=== PATIENT | male | born 1975 | race Caucasian/White ===

== ENCOUNTER 2025-09-14 10:10 | Inpatient (IN) ==
[2025-09-14] MEDS: PLASMA-LYTE A 1,000 ML IV ONE ×2 (10:39→12:29)
[2025-09-14] MEDS: ALBUT/IPRATROP 3MG/0.5MG NEB 3 ML VIAL NEB STA (10:43)
[2025-09-14] MEDS: KETOROLAC TROMETHAMINE 15 MG/ML VIAL IV ONE (10:43)
[2025-09-14] MEDS: ACETAMINOPHEN 1,000 MG/100 ML VIAL IV STA ×2 (10:43→17:11)
[2025-09-14 10:51] LABS: Hematocrit (blood only) 42.0 % (42.0-52.0); Hemoglobin 14.8 g/dL (14.0-18.0); Immature Granulocytes # (auto) 0.05 K/uL (0.01-0.20); Immature Granulocytes % (auto) 0.4 %; Mean Corpuscular Hemoglobin 30.6 pg (25.0-34.0); Mean Corpuscular Volume 87.0 fL (80.0-100.0); Platelet Count 151 K/uL (130-400); RDW Standard Deviation 39.4 fL (36.4-46.3); Red Blood Count 4.83 M/uL (4.70-6.10); White Blood Count 11.50 K/ul (4.8-10.8)
--- NOTE | 2025-09-14 11:07 | Emergency Department Note ---
Impression & Plan Sepsis, Upper respiratory infection, viral, Pneumonia, Acute hypoxic respiratory failure, Acute hyponatremia, Acute dehydration, Elevated troponin, First degree AV block ED Provider Note NAME: MEKA QUEZADA AGE: 50 SEX: M : 1975 ARRIVES VIA: Walk-In INFORMANT: Patient, ED PROVIDER(S): Omar Lepe DO CHIEF COMPLAINT: URI symptoms HPI: This is a 50-year-old male with the PMHx of diet controlled hyperlipidemia presenting to [facility] for further evaluation of URI symptoms. Patient is accompanied by his who provide additional history. The patient states that he has had URI symptoms have been ongoing. He states he was having an intermittent cough over the past few weeks. States that it was a similar illness to now. He states now he has seemed to worsen over the past few days. He reports generalized malaise, intermittent fevers, myalgias, arthralgias and headaches. Patient does report a nonproductive cough as well as congestion. Patient does feel that he is mildly short of breath with chest tightness but no significant pain. Patient denies any recent tick bites but [place] He does have a cabin and may have been exposed to bat or rodent droppings. Patient was recently at urgent care and was provided with Tessalon Perles that have failed to improve his symptoms. No recent international travel. They deny abdominal pain, nausea and vomiting. No urinary complaints. No recent changes in bowel movements. Patient denies recent changes in medications or OTC supplements. Patient offers no other complaints, today. ADDITIONAL HISTORY OBTAINED: Per HPI Chronic Medical/Social Conditions Affecting Care: Per HPI PAST MEDICAL HISTORY: See Below PAST SURGICAL HISTORY: See Below FAMILY HISTORY: See Below SOCIAL HISTORY: See Below HOME MEDICATIONS: See Below ALLERGIES: See Below VITALS: See Below PHYSICAL EXAMINATION: GENERAL: Sitting up in bed, alert, ill appearing, well nourished, no distress, non-toxic EYE EXAM: conjunctival injection bilateral. PERRL and EOM's grossly intact. OROPHARYNX: no exudate, + erythema. Lips, buccal mucosa, and tongue normal and mucous membranes are dry NECK: supple, no nuchal rigidity, no adenopathy, non-tender LUNGS: Clear to auscultation. Normal chest wall mechanics HEART: no murmurs, tachycardic rate, regular rhythm ABDOMEN: abdomen soft, non-tender, no masses, no rebound or guarding. BACK: Back is symmetrical on inspection and there is no deformity, no midline tenderness, no CVA tenderness. SKIN: no rashes and no bruising UPPER EXTREMITIES: upper extremities are grossly normal. LOWER EXTREMITIES: No pitting edema. NEURO EXAM: Normal sensorium, GCS 15, normal speech, no gross weakness of arms, no gross weakness of legs. MEDICAL DECISION MAKING: Differential diagnoses includes but not limited to viral URI, viral conjunctivitis, viral pharyngitis, pneumonia, electrolyte derangements, dehydration, bacteremia, UTI, sepsis, tickborne illness In summary, this is a 50 year old male who presented with febrile illness. Differential as above. Nursing notes and pertinent past medical records reviewed. Vital signs reviewed and the patient is tachycardic and febrile but otherwise hemodynamically stable. History and presentation revealed this is an extremely healthy and active individual tick exposures no with febrile illness. Symptoms are mostly consistent with a URI and could be a viral illness with failure to improve. Would also consider pneumonia. Given his shortness of breath along with viral syndrome, will attempt a DuoNeb for improvement. Plan for labs, tickborne illness evaluation as well as chest x-ray. Will provide IV fluid resuscitation and antipyretics. Diagnostics interpreted by me include EKG and cardiac monitoring as listed below: -Cardiac Monitoring: An order was placed for continuous cardiac monitoring. The monitor shows a rate of 80-110s with regular rhythm. -ECG: Sinus tachycardia at a rate of 103 bpm. There is a first-degree AV block. No significant ST segment changes to suggest STEMI. Intervals are otherwise within normal limits. -Repeat ECG: Normal sinus rhythm with a first-degree AV block present. No significant ST segment changes to suggest STEMI. Intervals are within normal limits otherwise. Patient completed laboratory studies and imaging. Results independently interpreted by me are minimal leukocytosis. No significant anemia or thrombocytopenia present. Mild hyponatremia present. Procalcitonin is mildly elevated. LFTs are normal. Kidney function is normal. The patient was managed with further IV fluid resuscitation and antipyretics. Patient did continued to spike fevers while in the emergency department. Patient was initially managed with amoxicillin and doxycycline for planned treatment of outpatient community- acquired pneumonia. I did independently review the patient's chest x-ray that shows possible lower lobe infiltrates. The patient's chest x-ray is not impressive. While could represent pneumonia I feel that his symptoms are more related to a URI. Patient did report some improvement from DuoNeb but with ambulation continues to have significant dyspnea. There is unclear etiology of the patient's tachycardia and fever at this time. Will add blood cultures, urinalysis, lactate and CT PE study. Patient is relatively low risk Wells criteria and thought that D-dimer would be beneficial. D-dimer and troponin were both mildly elevated. He has very minimal risk factors for ACS and his presentation is not consistent with this. D-dimer elevation led to CT PE study. CT PE study was independently turbid by me as negative for pulmonary embolism. I do feel the patient could be developing pneumonia in the left lower lobe. Given his hyponatremia and atypical presentation/imaging for pneumonia, will add on further atypical coverage with IV azithromycin. The patient has now required 2 L of low-flow nasal cannula. Given the patient's electrolyte derangements, ongoing fevers and tachycardia as well as acute hypoxic respiratory failure, I do feel the patient would benefit from inpatient admission for further workup. Patient is agreeable to this. Lactate was normal. The patient's troponin level continued uptrend. Repeat EKG was unremarkable. Do feel this is likely demand ischemia in setting of his tachycardia and sepsis. Do not feel strongly regarding antiplatelet/anticoagulation at this time, will defer to inpatient team. Ultimately, the decision was made to admit the patient for sepsis secondary to pneumonia/viral URI complicated by troponinemia, acute hypoxic respiratory failure and hyponatremia. I discussed the case with the hospitalist service via telephone/[employer]iger[employer] and they are agreeable to admit the patient to their services by Dr. Fernandez, [facility] Hospitalist group. Based on the above, including the patient's age, coexisting illnesses, labs, imaging, and exam findings the decision to treat as an inpatient. I discussed the patient with the hospitalist team who recommended admission to their services. They received the medications, treatments, interventions indicated above and their condition remained guarded. I discussed my findings with the patient and their family and they understand and agree with the treatment plan. All patient / family questions were answered to their satisfaction. Consults/Care Managements Discussions: Per [facility] ER treatment provided: See above Procedures: None Critical Care: I have personally spent 35 minutes of critical care time in direct management of this patient. This includes bedside care, interpretation of diagnostic studies, and testing, discussion with consultants, patient, and family members, and other require inpatient management activities. This 35 minutes is in excess of all separately billable procedures. The chart was completed utilizing [employer] Speech voice recognition software. Grammatical errors, random word insertions, pronoun errors, and incomplete sentences are an occasional consequence of this system due to software limitations, ambient noise, and hardware issues. Any formal questions or concerns about the content, text, or information contained within the body of this dictation should be directly addressed to the physician for clarification. Past Med/Surg History Problem List (Updated 09/14/25 @ 18:21 by Omar Lepe DO) First degree AV block (Acute) Elevated troponin (Acute) Acute dehydration (Acute) Acute hyponatremia (Acute) Acute hypoxic respiratory failure (Acute) Pneumonia (Acute) Upper respiratory infection, viral (Acute) Sepsis (Acute) Pain in left acromioclavicular joint Hypertriglyceridemia Elevated LDL cholesterol level Superior labrum [id number] (SLAP) tear of right shoulder Encounter for pre-operative examination Colon cancer screening Medical History Patella fracture History of COVID-19 Surgical History Hx of colonoscopy History of right cataract surgery Hx of LASIK Family History Mother Hypertension Father Atrial fibrillation Other No family history of adverse response to anesthesia Denies family history of Ovarian cancer Prostate cancer Diabetes Dementia Depression Heart disease Myocardial infarction Breast cancer Lung cancer Colorectal cancer Stroke Social History Smoking Status: Never smoker Second Hand Exposure: No; Do You Dip or Chew Tobacco: No; Hx Alcohol Use: Yes Alcohol type: beer Alcohol Intake Frequency: 2-4 x/Month Hx Substance Use: No Preferred Language: Estonian Communication Ability: Effective Visual Impairment: No Limitations Hearing Ability: Normal Rn Critical Care Required: No Beliefs That Will Affect Care: None marital status: Current Living Situation: Spouse and Family Current Living Situation Comment: Lives with and kids current occupational status: employed current occupation: global project manager How many Children do You have: 2 Feels Safe at Home: Yes Childhood Exposure to Second-Hand Smoke: No Diet: regular caffeine: Yes during the past year weight has: remained stable Dental Care, Regularly: Yes Physical Activity Frequency: 3-4 Times per Week Seatbelt Use: always Sunscreen Use: Yes Do you think of yourself as: straight/heterosexual Gender Identity: Male Assistive Devices: Glasses Allergies Allergies Allergy/AdvReac Type Severity Reaction Status Date / Time No Known Allergies Allergy Verified 09/12/25 11:39 Home Meds Previous Rx's Medication Instructions Recorded benzonatate 200 mg capsule 200 mg PO TID PRN cough #30 caps 09/12/25 Results & Data (ED) Vital Signs Vital Signs - 24 hr 09/14/25 10:12 09/14/25 10:30 09/14/25 11:14 Temperature 37.5 C 38.6 C H 38.8 C H Temperature Source Temporal Artery Scan Oral Oral Pulse Rate 113 H Pulse Rate [Apical] 108 H Respiratory Rate 18 24 Respiratory Effort / Characteristics Non-Labored Spontaneous Respiratory Depth Normal Respiratory Pattern Regular Blood Pressure 143/80 H Blood Pressure [Right Arm] 107/69 Blood Pressure Mean 101 Blood Pressure Mean [Right Arm] 81 Pulse Oximetry 97 92 Oxygen Delivery Method Room Air Room Air Oxygen Flow Rate Sepsis New/Unexplained Change in Mental Status No Sepsis Action Taken by Nursing No Action Required 09/14/25 12:11 09/14/25 12:27 09/14/25 12:29 Temperature 37.6 C H 37.4 C Temperature Source Oral Oral Pulse Rate 92 H Pulse Rate [Apical] 86 Respiratory Rate 19 Respiratory Effort / Characteristics Non-Labored Spontaneous Respiratory Depth Normal Respiratory Pattern Regular Blood Pressure Blood Pressure [Right Arm] 104/66 Blood Pressure Mean Blood Pressure Mean [Right Arm] 78 Pulse Oximetry 93 Oxygen Delivery Method Room Air Oxygen Flow Rate Sepsis New/Unexplained Change in Mental Status Sepsis Action Taken by Nursing 09/14/25 13:47 09/14/25 14:43 09/14/25 15:00 Temperature Temperature Source Pulse Rate 93 H Pulse Rate [Apical] 82 96 H Respiratory Rate 24 25 H 23 Respiratory Effort / Characteristics Non-Labored Spontaneous Respiratory Depth Normal Respiratory Pattern Regular Blood Pressure 122/79 Blood Pressure [Right Arm] 106/66 128/75 Blood Pressure Mean 93 Blood Pressure Mean [Right Arm] 79 92 Pulse Oximetry 95 95 96 Oxygen Delivery Method Room Air Room Air Oxygen Flow Rate Sepsis New/Unexplained Change in Mental Status Sepsis Action Taken by Nursing 09/14/25 15:30 09/14/25 15:34 09/14/25 16:00 Temperature 38.2 C H Temperature Source Oral Pulse Rate 95 H 104 H Pulse Rate [Apical] Respiratory Rate 29 H 32 H Respiratory Effort / Characteristics Respiratory Depth Respiratory Pattern Blood Pressure 126/77 119/79 Blood Pressure [Right Arm] Blood Pressure Mean 93 92 Blood Pressure Mean [Right Arm] Pulse Oximetry 97 93 Oxygen Delivery Method Oxygen Flow Rate Sepsis New/Unexplained Change in Mental Status Sepsis Action Taken by Nursing 09/14/25 16:37 09/14/25 16:37 09/14/25 16:55 Temperature 39.2 C H Temperature Source Oral Pulse Rate Pulse Rate [Apical] Respiratory Rate Respiratory Effort / Characteristics Respiratory Depth Respiratory Pattern Blood Pressure Blood Pressure [Right Arm] Blood Pressure Mean Blood Pressure Mean [Right Arm] Pulse Oximetry 88 L 92 Oxygen Delivery Method Room Air Nasal Cannula Oxygen Flow Rate 2 Sepsis New/Unexplained Change in Mental Status Sepsis Action Taken by Nursing 09/14/25 17:10 09/14/25 17:49 09/14/25 18:03 Temperature 37.8 C H Temperature Source Oral Pulse Rate Pulse Rate [Apical] 105 H 83 Respiratory Rate 29 H 23 Respiratory Effort / Characteristics Non-Labored Spontaneous Respiratory Depth Normal Respiratory Pattern Regular Blood Pressure Blood Pressure [Right Arm] 108/70 107/73 Blood Pressure Mean Blood Pressure Mean [Right Arm] 82 84 Pulse Oximetry 93 94 Oxygen Delivery Method Nasal Cannula Nasal Cannula Oxygen Flow Rate 2 2 Sepsis New/Unexplained Change in Mental Status Sepsis Action Taken by Nursing Laboratory Data 09/14/25 10:40 09/14/25 17:12 Lab Results 09/14/25 09/14/25 09/14/25 Range/Units 10:40 17:12 18:00 WBC 11.50 H (4.8-10.8) K/ul RBC 4.83 (4.70-6.10) M/uL Hgb 14.8 (14.0-18.0) g/dL Hct 42.0 (42.0-52.0) % MCV 87.0 (80.0-100.0) fL MCH 30.6 (25.0-34.0) pg MCHC 35.2 (32.0-36.0) g/dL RDW Std Deviation 39.4 (36.4-46.3) fL RDW Coeff of Bud 12.3 (11.5-14.5) % Plt Count 151 (130-400) K/uL MPV 9.8 (9.4-12.4) fL Immature Gran % (Auto) 0.4 % Neut % (Auto) 67.1 % Lymph % (Auto) 23.2 % [place] % (Auto) 9.0 % Eos % (Auto) 0.0 % Baso % (Auto) 0.3 % Neut # (Auto) 7.71 H (1.40-6.50) K/uL Lymph # (Auto) 2.67 (1.20-3.40) K/uL [place] # (Auto) 1.04 H (0.11-0.59) K/uL Eos # (Auto) 0.00 (0.00-0.50) K/uL Baso # (Auto) 0.03 (0.00-0.20) K/uL Immature Gran # (Auto) 0.05 (0.01-0.20) K/uL D-Dimer (0-500) ug/L FEU Sodium 128 L 130 L (136-145) mmol/L Potassium 4.1 3.5 (3.5-5.1) mmol/L Chloride 96 L 97 L (98-107) mmol/L Carbon Dioxide 24 24 (21-32) mmol/L Anion Gap 8 9 (3-11) BUN 12 12 (6-23) mg/dl Creatinine 0.98 0.82 (0.6-1.4) mg/dl Est Cr Clr Drug Dosing 109.0 130.2 ml/min eGFR 94.53 107.68 BUN/Creatinine Ratio 12.2 14.6 (10-20) Glucose 129 H 116 H (70-99(Fasting)) mg/dl Lactate 1.2 (0.4-2.0) mmol/L Calcium 8.8 8.1 L (8.6-10.3) mg/dl Total Bilirubin 1.0 (0.2-1.0) mg/dl AST 30 (13-39) U/L ALT 23 (7-52) U/L Alkaline Phosphatase 83 (34-104) U/L Troponin I High Sens 25.5 H 125.6 H* D (0-20) pg/ml Total Protein 7.7 (6.0-8.3) gm/dl Albumin 4.3 (3.4-5.0) gm/dl Globulin 3.4 (2.5-4.0) gm/dl Albumin/Globulin Ratio 1.3 (0.9-2) Procalcitonin 1.59 H (0-0.5) ng/ml Urine Color Yellow Urine Appearance Clear (Clear) Urine pH 6.0 (4.5-7.5) Ur Specific [place] > 1.045 H (1.000-1.030) Urine Protein 1+ H (Negative) Urine Glucose (UA) Negative (Negative) Urine Ketones Trace H (Negative) Urine Blood Negative (Negative) Urine Nitrite Negative (Negative) Urine Bilirubin Negative (Negative) Urine Urobilinogen Negative (Negative) Ur Leukocyte Esterase Negative (Negative) Urine WBC (Auto) 6-10 H (0-5) /hpf Urine RBC (Auto) 0-2 (0-2) /hpf U Hyaline Cast (Auto) 0-2 (0-2) /lpf U Epithel Cells (Auto) 0-2 (0-2) /hpf Urine Bacteria (Auto) None Seen (None Seen) Urine Comment Adenovirus (PCR) Not Detected (NotDetected) Anaplasma Smear See Comment B. pertussis DNA (PCR) Not Detected (NotDetected) B.parapertussis DNA PCR Not Detected (NotDetected) Lyme Disease Screen Negative (Negative) C. pneumoniae DNA (PCR) Not Detected (NotDetected) Coronavirus OC43 (PCR) Not Detected (NotDetected) Coronavirus HKU1 (PCR) Not Detected (NotDetected) Coronavirus 229E (PCR) Not Detected (NotDetected) SARS-CoV-2 (PCR) Not Detected (NotDetected) Coronavirus NL63 (PCR) Not Detected (NotDetected) Human Metapneumovir PCR Not Detected (NotDetected) Influenza Type A (PCR) Not Detected (NotDetected) Influenza Type B (PCR) Not Detected (NotDetected) M. pneumoniae (PCR) Not Detected (NotDetected) Parainfluenza 1 (PCR) Not Detected (NotDetected) Parainfluenza 2 (PCR) Not Detected (NotDetected) Parainfluenza 3 (PCR) Not Detected (NotDetected) Parainfluenza 4 (PCR) Not Detected (NotDetected) RSV (PCR) Not Detected (NotDetected) Entero/Rhino (PCR) Not Detected (NotDetected) 09/14/25 Range/Units Unknown WBC (4.8-10.8) K/ul RBC (4.70-6.10) M/uL Hgb (14.0-18.0) g/dL Hct (42.0-52.0) % MCV (80.0-100.0) fL MCH (25.0-34.0) pg MCHC (32.0-36.0) g/dL RDW Std Deviation (36.4-46.3) fL RDW Coeff of Bud (11.5-14.5) % Plt Count (130-400) K/uL MPV (9.4-12.4) fL Immature Gran % (Auto) % Neut % (Auto) % Lymph % (Auto) % [place] % (Auto) % Eos % (Auto) % Baso % (Auto) % Neut # (Auto) (1.40-6.50) K/uL Lymph # (Auto) (1.20-3.40) K/uL [place] # (Auto) (0.11-0.59) K/uL Eos # (Auto) (0.00-0.50) K/uL Baso # (Auto) (0.00-0.20) K/uL Immature Gran # (Auto) (0.01-0.20) K/uL D-Dimer 2240 H* (0-500) ug/L FEU Sodium (136-145) mmol/L Potassium (3.5-5.1) mmol/L Chloride (98-107) mmol/L Carbon Dioxide (21-32) mmol/L Anion Gap (3-11) BUN (6-23) mg/dl Creatinine (0.6-1.4) mg/dl Est Cr Clr Drug Dosing ml/min eGFR BUN/Creatinine Ratio (10-20) Glucose (70-99(Fasting)) mg/dl Lactate (0.4-2.0) mmol/L Calcium (8.6-10.3) mg/dl Total Bilirubin (0.2-1.0) mg/dl AST (13-39) U/L ALT (7-52) U/L Alkaline Phosphatase (34-104) U/L Troponin I High Sens 45.0 H D (0-20) pg/ml Total Protein (6.0-8.3) gm/dl Albumin (3.4-5.0) gm/dl Globulin (2.5-4.0) gm/dl Albumin/Globulin Ratio (0.9-2) Procalcitonin (0-0.5) ng/ml Urine Color Urine Appearance (Clear) Urine pH (4.5-7.5) Ur Specific [place] (1.000-1.030) Urine Protein (Negative) Urine Glucose (UA) (Negative) Urine Ketones (Negative) Urine Blood (Negative) Urine Nitrite (Negative) Urine Bilirubin (Negative) Urine Urobilinogen (Negative) Ur Leukocyte Esterase (Negative) Urine WBC (Auto) (0-5) /hpf Urine RBC (Auto) (0-2) /hpf U Hyaline Cast (Auto) (0-2) /lpf U Epithel Cells (Auto) (0-2) /hpf Urine Bacteria (Auto) (None Seen) Urine Comment Adenovirus (PCR) (NotDetected) Anaplasma Smear B. pertussis DNA (PCR) (NotDetected) B.parapertussis DNA PCR (NotDetected) Lyme Disease Screen (Negative) C. pneumoniae DNA (PCR) (NotDetected) Coronavirus OC43 (PCR) (NotDetected) Coronavirus HKU1 (PCR) (NotDetected) Coronavirus 229E (PCR) (NotDetected) SARS-CoV-2 (PCR) (NotDetected) Coronavirus NL63 (PCR) (NotDetected) Human Metapneumovir PCR (NotDetected) Influenza Type A (PCR) (NotDetected) Influenza Type B (PCR) (NotDetected) M. pneumoniae (PCR) (NotDetected) Parainfluenza 1 (PCR) (NotDetected) Parainfluenza 2 (PCR) (NotDetected) Parainfluenza 3 (PCR) (NotDetected) Parainfluenza 4 (PCR) (NotDetected) RSV (PCR) (NotDetected) Entero/Rhino (PCR) (NotDetected) Administered Medications Amoxicillin (Amoxicillin 875 Mg Tab) 875 mg PO BID VU; Protocol Stop: 09/16/25 12:29 Last Admin: 09/14/25 13:48 Dose: 875 mg Documented By: [email or web address] Parenteral Electrolytes (Plasma-Lyte A Ph 7.4) 1,000 mls @ 125 mls/hr IV .Q8H VU Stop: 09/17/25 16:14 Last Admin: 09/14/25 16:53 Dose: 125 mls/hr Documented By: [email or web address] Discontinued Medications Albuterol (Albut/Ipratrop 3mg/0.5mg Neb 3 Ml Vial) 3 ml NEB NOW STA; Protocol Stop: 09/14/25 10:31 Last Admin: 09/14/25 10:43 Dose: 3 ml Documented By: MARIFER Albuterol (Albuterol Hfa 8 Gm Inhaler) 2 puffs INH NOW ONE Stop: 09/14/25 12:26 Last Admin: 09/14/25 13:48 Dose: 2 puffs Documented By: [email or web address] Doxycycline Hyclate (Doxycycline Hyclate 100 Mg Cap) 100 mg PO NOW STA Stop: 09/14/25 14:09 Last Admin: 09/14/25 14:44 Dose: 100 mg Documented By: [email or web address] Acetaminophen (Ofirmev) 1,000 mg in 100 mls @ 400 mls/hr IV NOW STA Stop: 09/14/25 10:44 Last Infusion: 09/14/25 11:16 Dose: Infused Documented By: [email or web address] Admin: 09/14/25 10:43 Dose: 400 mls/hr Documented By: MARIFER Parenteral Electrolytes (Plasma-Lyte A Ph 7.4) 1,000 mls @ 999 mls/hr IV .Q1H1M ONE Stop: 09/14/25 11:30 Last Infusion: 09/14/25 12:30 Dose: Infused Documented By: Admin: 09/14/25 10:39 Dose: 999 mls/hr Documented By: MARIFER Parenteral Electrolytes (Plasma-Lyte A Ph 7.4) 1,000 mls @ 999 mls/hr IV .Q1H1M ONE Stop: 09/14/25 13:25 Last Infusion: 09/14/25 13:49 Dose: Infused Documented By: [email or web address] Admin: 09/14/25 12:29 Dose: 999 mls/hr Documented By: CEF Acetaminophen (Ofirmev) 1,000 mg in 100 mls @ 400 mls/hr IV NOW STA Stop: 09/14/25 17:11 Last Infusion: 09/14/25 17:30 Dose: Infused Documented By: [email or web address] Admin: 09/14/25 17:11 Dose: 400 mls/hr Documented By: [email or web address] Azithromycin (Zithromax) 500 mg in 255 mls @ 127.5 mls/hr IV NOW ONE Stop: 09/14/25 18:58 Last Admin: 09/14/25 18:02 Dose: 127.5 mls/hr Documented By: [email or web address] Ioversol (Optiray 320 125ml) 119 ml IV ONCE ONE Stop: 09/14/25 16:49 Last Admin: 09/14/25 16:49 Dose: 119 ml Documented By: SIDRA Ketorolac Tromethamine (Ketorolac Tromethamine 15 Mg/Ml Vial) 10 mg IV NOW ONE Stop: 09/14/25 10:31 Last Admin: 09/14/25 10:43 Dose: 10 mg Documented By: MARIFER Ketorolac Tromethamine (Ketorolac Tromethamine 15 Mg/Ml Vial) 15 mg IV NOW STA Stop: 09/14/25 15:45 Last Admin: 09/14/25 16:20 Dose: 15 mg Documented By: [facility] Imaging Data Radiologist's Impression: Chest X-Ray 09/14/25 10:30 XR chest 2V PA/lateral CLINICAL HISTORY: eval for PNA COMPARISON STUDY: 09/12/2025 FINDINGS: Heart size and pulmonary vasculature are normal. There is interval mild stranding in the lung bases. No other consolidation or pleural effusion. No pneumothorax. IMPRESSION: Atelectasis versus early pneumonia in the lung bases. ACT 112: Negative or not required by law. Electronically signed by: Joseph Tuttle M.D. 09/14/2025 11:44 AM Chest CTA 09/14/25 15:59 CT pulmonary angiogram with IV contrast History: Cough COMPARISON: None TECHNIQUE: CT angiography of the chest was performed without IV contrast followed by IV contrast, including 3D post processing CTA image reconstruction. Dose reduction techniques were achieved by using automatic exposure control and/or adjustment of mA and/or kV according to patient size and/or use of iterative reconstruction technique. FINDINGS: Diagnostic quality: Adequate There is no evidence for pulmonary embolism. The heart is not enlarged. There is no pericardial effusion. There are no abnormally enlarged hilar or mediastinal lymph nodes. The central tracheobronchial tree is clear. The lungs are clear. There is no pleural effusion. Limited visualized upper abdomen. No destructive osseous changes are seen. IMPRESSION: No evidence for pulmonary embolism. Scattered streaky atelectasis throughout the lung bases, as well as an area of bandlike atelectasis in the right middle lobe. Electronically signed by Edgar Guadalupe 09-14-2025 5:01 PM Discharge Plan Visit Data Chief Complaint: Flu Like Symptoms Stated Complaint: HEADACHE, SOB, FATIGUE, FEVER ED Provider: Omar Lepe Discharge Problem: Sepsis, Upper respiratory infection, viral, Pneumonia, Acute hypoxic respiratory failure, Acute hyponatremia, Acute dehydration, Elevated troponin, First degree AV block Patient Disposition: Admitted As Inpatient Condition: Serious Forms Stand Alone Forms: [facility] [employer] Prescriptions Prescriptions: No Action benzonatate 200 mg capsule 200 mg PO TID PRN (Reason: cough) Qty: 30 0RF Referrals Referrals: Kristian Moise CRNP [Primary Care Provider] -
[2025-09-14 11:21] LABS: Alanine Aminotransferase 23.0 U/L (7-52); Albumin Globulin Ratio 1.3 (0.9-2); Albumin Level 4.3 gm/dl (3.4-5.0); Alkaline Phosphatase 83.0 U/L (34-104); Anion Gap 8.0 (3-11); Bilirubin,Total 1.0 mg/dl (0.2-1.0); Blood Urea Nitrogen 12.0 mg/dl (6-23); Calcium 8.8 mg/dl (8.6-10.3); Carbon Dioxide 24.0 mmol/L (21-32); Chloride 96.0 mmol/L (98-107); Creatinine Clr Calc Pharmacy 109.0 ml/min; Globulin 3.4 gm/dl (2.5-4.0); Glucose 129.0 mg/dl (70-99(Fasting)); Potassium 4.1 mmol/L (3.5-5.1); Sodium 128.0 mmol/L (136-145); Total Protein 7.7 gm/dl (6.0-8.3)
[2025-09-14 11:26] LABS: Procalcitonin 1.59 ng/ml (0-0.5)
[2025-09-14 11:43] LABS: Lyme Screen Rflx Confirmation Negative (Negative)
--- NOTE | 2025-09-14 11:45 | XRay Report ---
XR chest 2V PA/lateral CLINICAL HISTORY: eval for PNA COMPARISON STUDY: 09/12/2025 FINDINGS: Heart size and pulmonary vasculature are normal. There is interval mild stranding in the cristian ng bases. No other consolidation or pleural effusion. No pneumothorax. IMPRESSION: Atelectasis versus early pneumonia in the lung bases. ACT 112: Negative or not required by law. Electronically signed by: Joseph Tuttle M.D. 09/14/2025 11:44 AM
[2025-09-14 11:48] LABS: Chlamydia pneumoniae PCR Not Detected (NotDetected); Coronavirus 229E PCR Not Detected (NotDetected); Coronavirus CoV-2 (COVID19)PCR Not Detected (NotDetected); Coronavirus HKU1 PCR Not Detected (NotDetected); Coronavirus NL63 PCR Not Detected (NotDetected); Coronavirus OC43PCR Not Detected (NotDetected); Human Metapneumovirus PCR Not Detected (NotDetected); Parainfluenza Virus 1 PCR Not Detected (NotDetected); Parainfluenza Virus 2 PCR Not Detected (NotDetected); Parainfluenza Virus 3 PCR Not Detected (NotDetected); Parainfluenza Virus 4 PCR Not Detected (NotDetected); Respiratory Syncytial VirusPCR Not Detected (NotDetected); Rhinovirus/Enterovirus PCR Not Detected (NotDetected)
--- NOTE | 2025-09-14 13:08 | Electrocardiogram Report ---
Test Reason : Blood Pressure : */* mmHG Vent. Rate : 103 BPM Atrial Rate : 103 BPM P-R Int : 210 ms QRS Dur : 90 ms QT Int : 326 ms P-R-T Axes : 46 65 39 degrees QTcB Int : 427 ms Sinus tachycardia with 1st degree A-V block Otherwise normal ECG No previous ECGs available Confirmed by Edgar Lord ([id number]) on 09/14/2025 1:08:33 PM Referred By: REFERRED SELF Confirmed By: Edgar Lord
[2025-09-14] MEDS: AMOXICILLIN 875 MG TAB PO SCH (13:48)
[2025-09-14] MEDS: ALBUTEROL HFA 8 GM INHALER INH ONE (13:48)
[2025-09-14] MEDS: DOXYCYCLINE HYCLATE 100 MG CAP PO STA (14:44)
[2025-09-14] MEDS: KETOROLAC TROMETHAMINE 15 MG/ML VIAL IV STA (16:20)
[2025-09-14] MEDS: OPTIRAY 320 125ml IV ONE (16:49)
[2025-09-14] MEDS: PLASMA-LYTE A 1,000 ML IV SCH (16:53)
--- NOTE | 2025-09-14 17:01 | CT Scan Report ---
CT pulmonary angiogram with IV contrast History: Cough COMPARISON: None TECHNIQUE: CT angiography of the chest was performed without IV contrast followed by IV contrast, including 3D post processing CTA image reconstruction. Dose reduction techniques were achieved by using automatic exposure control and/or adjustment of mA and/or kV according to patient size and/or use of iterative reconstruction technique. FINDINGS: Diagnostic quality: Adequate There is no evidence for pulmonary embolism. The heart is not enlarged. There is no pericardial effusion. There are no abnormally enlarged hilar or mediastinal lymph nodes. The central tracheobronchial tree is clear. The lungs are clear. There is no pleural effusion. Limited visualized upper abdomen. No destructive osseous changes are seen. IMPRESSION: No evidence for pulmonary embolism. Scattered streaky atelectasis throughout the lung bases, as well as an area of bandlike atelectasis in the right middle lobe. Electronically signed by Edgar Guadalupe 09-14-2025 5:01 PM
--- NOTE | 2025-09-14 17:38 | History & Physical Report ---
Date of Service September 14, 2025 Assessment & Plan (1) Pneumonia: (2) Acute hypoxic respiratory failure: (3) Sepsis: (4) Acute hyponatremia: (5) Acute dehydration: (6) Elevated troponin: (7) First degree AV block: (8) Syncope: Plan 50yo male with no significant PMH presenting with cough for about 3 weeks, fever for several days in early August which resolved at that time, then recurrent fevers about 3-4 days ago. The recurrent fevers were associated with worsening cough, weakness, fatigue, poor appetite, and a brief syncopal episode at home. #b/l basilar pneumonia - -viral vs atypical bacterial pathogens vs typical bacterial pathogens -I suspect one of two scenarios --> back to back viral infections over the last 3 weeks, or alternatively an initial viral syndrome followed by bacterial superinfection (with the latter over the last 3-4 days) -respiratory BioFire negative -s/p amoxicillin, doxycycline, and azithromycin in the ER -will cont rocephin IV + azithromycin IV upon admission -check legionella urine ag -check mycoplasma IgM/IgG in the event his resp BioFire was falsely negative -flutter valve, incentive alcira -IV fluids -diet as tolerated -mucinex BID -hycodan q6h prn -if he fails to improve in the next 2-3 days would consider repeat COVID test, pulm consult, etc. #acute hypoxic resp failure - -2nd to b/l pneumonia -NC O2 -IV antibiotics as above -supportive care -no evidence of PE on CTA chest today #sepsis - -2nd to b/l basilar pneumonia -patient & his expressed concerns for exposure to ticks as well as potential mouse droppings as he was at their cabin recently doing some work on the site -lyme negative -anaplasmosis smear negative -check anaplasmosis DNA test to be complete (anaplasmosis rarely can cause pneumonia) -send rickettsial panel in am (typhus rarely can cause pneumonia) #hyponatremia - -2nd to dehydration/volume contraction -cont isotonic fluids -repeat BMP am #troponin elevation - -suspect this is due to myocardial demand ischemia in the setting of sepsis/pneumonia -no evidence of ACS -troponin peak already seen #syncope - -likely due to severe dehydration/volume contraction in the setting of his illness -had prodromal symptoms -will check echo to be complete -suspect echo will be normal; he leads an active lifestyle, exercises w/o limitations, etc. #first degree AV block - -no Rx needed -will be on telemetry to ensure no higher types of block -echo DVT proph - -if he stays beyond tomorrow would add heparin or lovenox SC pt's updated throughout the admission process History of Present Illness Chief Complaint: fever, cough, shortness of breath Primary Care Provider: KRYSTIAN Babcock 50yo male with no past medical history who presents with ~3 weeks of cough, fevers, and other infectious symptoms. Patient states he traveled to [place] in mid-July for work-related activity. Then, in early August, he developed a dry cough with 4-5 days of high fevers, sometimes reaching 104 degrees. Around this time one of his sons had a 24-hour febrile illness. Mr Clarke's fevers resolved, but his dry cough continued. Over the next two weeks his cough simply would not resolve. However, he was able to maintain normal activities, work, etc. He mentions he took an [id number] cough suppressant (Delsym) last week but did not like the way it made him feel and thus stopped it after 3 days of use. Then, on Saturday of last week, he developed significant fatigue and weakness, poor appetite, and worsening cough. Thru the weekend he felt warm but did not check his temperature until Saturday pm; at that point he confirmed that indeed he was having recurrent fevers. On Saturday he went to a local urgent care. A chest x-ray was performed and he was prescribed Tessalon perles. He continued to worsen. On Saturday and today he had dyspnea with minimal activity. Today he finally came to the ER for evaluation. In addition to the above he had an episode of diarrhea last night. While attempting to get up from the toilet he was very weak, felt dizzy, and passed out. He woke up on the floor; his came to his aid following this event. During my admission assessment his was present at bedside who supplemented the history. She mentioned that Mr Clarke was doing work on their cabin recently and she was concerned about exposure to mouse droppings. She also expressed concern about tick-borne illness. Allergies Allergy/AdvReac Type Severity Reaction Status Date / Time No Known Allergies Allergy Verified 09/12/25 11:39 Home Medications Medication Instructions Recorded Confirmed Type benzonatate 200 mg capsule 200 mg PO TID PRN cough #30 caps 09/12/25 09/14/25 Rx Past Med/Surg History Problem List (Updated 09/15/25 @ 06:33 by Guerrero Andrews MD) Syncope First degree AV block (Acute) Elevated troponin (Acute) Acute dehydration (Acute) Acute hyponatremia (Acute) Acute hypoxic respiratory failure (Acute) Pneumonia (Acute) Upper respiratory infection, viral (Acute) Sepsis (Acute) Pain in left acromioclavicular joint Hypertriglyceridemia Elevated LDL cholesterol level Superior labrum ekblfphi-bm-repodnxdt (SLAP) tear of right shoulder Encounter for pre-operative examination Colon cancer screening Medical History Patella fracture History of COVID-19 07/2022, home test, not hosp; "bad flu symptoms">resolved. Surgical History Hx of colonoscopy History of right cataract surgery Hx of LASIK Family History Mother Hypertension Breast cancer Factor 5 Leiden mutation, heterozygous Father Atrial fibrillation Other No family history of adverse response to anesthesia Denies family history of Ovarian cancer Prostate cancer Diabetes Dementia Depression Heart disease Myocardial infarction Lung cancer Colorectal cancer Stroke Social History Smoking Status: Never smoker Second Hand Exposure: No; Do You Dip or Chew Tobacco: No; Hx Alcohol Use: No Hx Substance Use: No Preferred Language: Polish Communication Ability: Effective Visual Impairment: No Limitations Hearing Ability: Normal Technical Architect Required: No Beliefs That Will Affect Care: None marital status: Current Living Situation: Spouse Current Living Situation Comment: Lives with and kids current occupational status: employed 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[employer]) How many Children do You have: 2 Feels Safe at Home: Yes Childhood Exposure to Second-Hand Smoke: No Diet: regular caffeine: Yes during the past year weight has: remained stable Dental Care, Regularly: Yes Physical Activity Frequency: 3-4 Times per Week Seatbelt Use: always Sunscreen Use: Yes Do you think of yourself as: straight/heterosexual Gender Identity: Male Assistive Devices: None Review of Systems Review of Systems: gen - fevers x 4-5 days early in August, resolved; then developed fevers this weekend once again; poor appetite for several days; no chills but having profuse sweats eyes - conjunctival injection with mild drainage L eye HENT - no sore throat, no significant nasal drainage, no ear pain CV - no chest pain, no peripheral edema pulm - dry cough, dyspnea, dyspnea on exertion; no wheezing; albuterol neb given early in the ER course - he feels it didn't really help; no sputum GI - no abd pain; 1 episode of diarrhea yesterday; no nausea/vomiting - no dysuria musculo - myalgias neuro - generalized weakness, brief episode of syncope yesterday while getting up from the toilet after having had diarrhea skin - no rash Physical Exam Physical Exam: gen - looks ill, awake, alert, able to provide history; coughing; no distress eyes - injected sclera/conjunctiva b/l; minimal drainage left eye HENT - TMs clear b/l, nose clear, mouth with slightly dry MM, no posterior pharyngeal wall erythema neck - no JVD, no lymph nodes, no goiter; no meningismus heart - tachy, s1 s2, no murmur or rub lungs - mild tachypnea but no retractions; coughing; b/l basilar rales about 1/[address] up the back; no wheeze; airation fair abd - soft NT ND BS+; no HSM ext - no edema, pulses 2+ b/l feet neuro - no facial droop, strength 5/5 x 4 exts skin - sweaty/diaphoretic, but no rash psych - a/o x 3 Results & Data Results & Data Vital Signs (Past 12 Hours) Vital Signs Temp Pulse Pulse Resp BP BP Pulse Ox 09/14/25 17:10 105 H 29 H 108/70 93 09/14/25 16:55 39.2 C H 09/14/25 16:37 92 09/14/25 16:37 88 L 09/14/25 16:00 104 H 32 H 119/79 93 09/14/25 15:34 38.2 C H 09/14/25 15:30 95 H 29 H 126/77 97 09/14/25 15:00 93 H 23 122/79 96 09/14/25 14:43 96 H 25 H 128/75 95 09/14/25 13:47 82 24 106/66 95 09/14/25 12:29 92 H 09/14/25 12:27 37.4 C 09/14/25 12:11 37.6 C H 86 19 104/66 93 09/14/25 11:14 38.8 C H 108 H 24 107/69 92 09/14/25 10:30 38.6 C H 09/14/25 10:12 37.5 C 113 H 18 143/80 H 97 O2 Del Method O2 Flow Rate 09/14/25 17:10 Nasal Cannula 2 09/14/25 16:55 09/14/25 16:37 Nasal Cannula 2 09/14/25 16:37 Room Air 09/14/25 16:00 09/14/25 15:34 09/14/25 15:30 09/14/25 15:00 09/14/25 14:43 Room Air 09/14/25 13:47 Room Air 09/14/25 12:29 09/14/25 12:27 09/14/25 12:11 Room Air 09/14/25 11:14 Room Air 09/14/25 10:30 09/14/25 10:12 Room Air Laboratory Results Laboratory Results - last 24 hr 09/14/25 09/14/25 09/14/25 10:40 17:12 18:00 WBC 11.50 H RBC 4.83 Hgb 14.8 Hct 42.0 MCV 87.0 MCH 30.6 MCHC 35.2 RDW Std Deviation 39.4 RDW Coeff of Bud 12.3 Plt Count 151 MPV 9.8 Immature Gran % (Auto) 0.4 Neut % (Auto) 67.1 Lymph % (Auto) 23.2 [place] % (Auto) 9.0 Eos % (Auto) 0.0 Baso % (Auto) 0.3 Neut # (Auto) 7.71 H Lymph # (Auto) 2.67 [place] # (Auto) 1.04 H Eos # (Auto) 0.00 Baso # (Auto) 0.03 Immature Gran # (Auto) 0.05 D-Dimer Sodium 128 L 130 L Potassium 4.1 3.5 Chloride 96 L 97 L Carbon Dioxide 24 24 Anion Gap 8 9 BUN 12 12 Creatinine 0.98 0.82 Est Cr Clr Drug Dosing 109.0 130.2 eGFR 94.53 107.68 BUN/Creatinine Ratio 12.2 14.6 Glucose 129 H 116 H Lactate 1.2 Calcium 8.8 8.1 L Total Bilirubin 1.0 AST 30 ALT 23 Alkaline Phosphatase 83 Troponin I High Sens 25.5 H 125.6 H* D Total Protein 7.7 Albumin 4.3 Globulin 3.4 Albumin/Globulin Ratio 1.3 Procalcitonin 1.59 H Urine Color Yellow Urine Appearance Clear Urine pH 6.0 Ur Specific [place] > 1.045 H Urine Protein 1+ H Urine Glucose (UA) Negative Urine Ketones Trace H Urine Blood Negative Urine Nitrite Negative Urine Bilirubin Negative Urine Urobilinogen Negative Ur Leukocyte Esterase Negative Urine WBC (Auto) 6-10 H Urine RBC (Auto) 0-2 U Hyaline Cast (Auto) 0-2 U Epithel Cells (Auto) 0-2 Urine Bacteria (Auto) None Seen Urine Comment Adenovirus (PCR) Not Detected Anaplasma Smear See Comment A. phagocytophilum DNA Pending B. pertussis DNA (PCR) Not Detected B.parapertussis DNA PCR Not Detected Lyme Disease Screen Negative C. pneumoniae DNA (PCR) Not Detected Coronavirus OC43 (PCR) Not Detected Coronavirus HKU1 (PCR) Not Detected Coronavirus 229E (PCR) Not Detected SARS-CoV-2 (PCR) Not Detected Coronavirus NL63 (PCR) Not Detected Human Metapneumovir PCR Not Detected Influenza Type A (PCR) Not Detected Influenza Type B (PCR) Not Detected Urine Legionella Ag Pending Mycoplasma pneumon IgG Pending Mycoplasma pneumon IgM Pending M. pneumoniae (PCR) Not Detected Parainfluenza 1 (PCR) Not Detected Parainfluenza 2 (PCR) Not Detected Parainfluenza 3 (PCR) Not Detected Parainfluenza 4 (PCR) Not Detected RSV (PCR) Not Detected Entero/Rhino (PCR) Not Detected 09/14/25 Unknown D-Dimer 2240 H* Troponin I High Sens 45.0 H D Diagnostic Findings Chest X-Ray 09/14/25 10:30 XR chest 2V PA/lateral CLINICAL HISTORY: eval for PNA COMPARISON STUDY: 09/12/2025 FINDINGS: Heart size and pulmonary vasculature are normal. There is interval mild stranding in the lung bases. No other consolidation or pleural effusion. No pneumothorax. IMPRESSION: Atelectasis versus early pneumonia in the lung bases. ACT 112: Negative or not required by law. Electronically signed by: Joseph Tuttle M.D. 09/14/2025 11:44 AM Chest CTA 09/14/25 15:59 CT pulmonary angiogram with IV contrast History: Cough COMPARISON: None TECHNIQUE: CT angiography of the chest was performed without IV contrast followed by IV contrast, including 3D post processing CTA image reconstruction. Dose reduction techniques were achieved by using automatic exposure control and/or adjustment of mA and/or kV according to patient size and/or use of iterative reconstruction technique. FINDINGS: Diagnostic quality: Adequate There is no evidence for pulmonary embolism. The heart is not enlarged. There is no pericardial effusion. There are no abnormally enlarged hilar or mediastinal lymph nodes. The central tracheobronchial tree is clear. The lungs are clear. There is no pleural effusion. Limited visualized upper abdomen. No destructive osseous changes are seen. IMPRESSION: No evidence for pulmonary embolism. Scattered streaky atelectasis throughout the lung bases, as well as an area of bandlike atelectasis in the right middle lobe. Electronically signed by Edgar Guadalupe 09-14-2025 5:01 PM ECG Additional Comments: EKG - sinus tach, first degree AV block, J point elevation - diffuse - early repol? PG Care Time/CCT Total # of Minutes Spent Total Time Spent with Patient: Total time spent is greater than 50% in coordination of care (as documented) at patient's floor/unit and/or counseling patient: Coding Level of Care Code 94741 INT INP/OBS CARE 3/75MIN Diagnoses Pneumonia J18.9 Acute hypoxic respiratory failure J96.01 Sepsis A41.9 Acute hyponatremia E87.1 Acute dehydration E86.0 Elevated troponin R79.89 First degree AV block I44.0 Syncope R55
[2025-09-14] MEDS: AZITHROMYCIN 500 MG/255 ML BAG IV ONE (18:02)
[2025-09-14 18:23] LABS: Appearance Urine Clear (Clear); Bacteria Urine Automated None Seen (None Seen); Cast Urine Automated 0-2 /lpf (0-2); Epithelial Cell Urine Auto 0-2 /hpf (0-2); Glucose Urine UA Negative (Negative); RBC Urine Automated 0-2 /hpf (0-2)
[2025-09-14 18:26] LABS: Anion Gap 9.0 (3-11); Blood Urea Nitrogen 12.0 mg/dl (6-23); Calcium 8.1 mg/dl (8.6-10.3); Carbon Dioxide 24.0 mmol/L (21-32); Chloride 97.0 mmol/L (98-107); Creatinine Clr Calc Pharmacy 130.2 ml/min; Glucose 116.0 mg/dl (70-99(Fasting)); Potassium 3.5 mmol/L (3.5-5.1); Sodium 130.0 mmol/L (136-145)
[2025-09-14] MEDS ORDERED: ACETAMINOPHEN 500 MG TAB PO PRN (21:09)
[2025-09-14] MEDS ORDERED: ONDANSETRON INJ 2 MG/ML 2 ML VIAL IV PRN (21:09)
[2025-09-14] MEDS ORDERED: KETOROLAC 30 MG/ML VIAL IV PRN (21:09)
[2025-09-14] MEDS: NSS + 20MEQ KCL 20 MEQ/1,000 ML BAG IV SCH (21:48)
[2025-09-14] MEDS: cefTRIAXone SODIUM 2,000 MG/50 ML BAG IV SCH (21:48)
[2025-09-14] MEDS: guaiFENesin 600 MG TABCR PO SCH (21:49)
[2025-09-14 23:29] VITALS: TEMP 97.9
[2025-09-15] MEDS: MELATONIN 3 MG TAB PO PRN (01:31)
[2025-09-15 04:00] VITALS: O2SAT 95
[2025-09-15 06:16] LABS: Hematocrit (blood only) 36.4 % (42.0-52.0); Hemoglobin 12.6 g/dL (14.0-18.0); Mean Corpuscular Hemoglobin 30.1 pg (25.0-34.0); Mean Corpuscular Volume 87.1 fL (80.0-100.0); Platelet Count 140 K/uL (130-400); RDW Standard Deviation 40.2 fL (36.4-46.3); Red Blood Count 4.18 M/uL (4.70-6.10); White Blood Count 7.99 K/ul (4.8-10.8)
[2025-09-15 06:20] LABS: Anion Gap 7.0 (3-11); Blood Urea Nitrogen 11.0 mg/dl (6-23); Calcium 8.0 mg/dl (8.6-10.3); Carbon Dioxide 25.0 mmol/L (21-32); Chloride 101.0 mmol/L (98-107); Creatinine Clr Calc Pharmacy 157.1 ml/min; Glucose 95.0 mg/dl (70-99(Fasting)); Potassium 3.8 mmol/L (3.5-5.1); Sodium 133.0 mmol/L (136-145)
[2025-09-15 07:31] VITALS: PULSE 70; RESP 16
[2025-09-15 07:36] LABS: Acanthocytes 1+; Immature Granulocytes # (auto) 0.02 K/uL (0.01-0.20); Immature Granulocytes % (auto) 0.3 %; Polychromasia 1+
--- NOTE | 2025-09-15 09:46 | Discharge Summary ---
Discharge Summary Date of Service September 15, 2025 Principal Dx & Hospital Course #1 = Principal Diagnosis (1) Pneumonia: (2) Acute hypoxic respiratory failure: (3) Sepsis: (4) Acute hyponatremia: (5) Acute dehydration: (6) Elevated troponin: (7) First degree AV block: (8) Syncope: Plan 50yo male with no significant PMH presenting with cough for about 3 weeks, fever for several days in early August which resolved at that time, then recurrent fevers about 3-4 days ago. The recurrent fevers were associated with worsening cough, weakness, fatigue, poor appetite, and a brief syncopal episode at home. #b/l basilar pneumonia - -viral vs atypical bacterial pathogens vs typical bacterial pathogens -I suspect one of two scenarios --> back to back viral infections over the last 3 weeks, or alternatively an initial viral syndrome followed by bacterial superinfection (with the latter over the last 3-4 days) -respiratory BioFire negative -s/p amoxicillin, doxycycline, and azithromycin in the ER -will cont rocephin IV + azithromycin IV upon admission -check legionella urine ag -check mycoplasma IgM/IgG in the event his resp BioFire was falsely negative -flutter valve, incentive alcira -IV fluids -diet as tolerated -mucinex BID -hycodan q6h prn -Pt's symptoms improved by AM, breathing on RA. #acute hypoxic resp failure - -2nd to b/l pneumonia -NC O2 -IV antibiotics as above -supportive care -no evidence of PE on CTA chest today #sepsis - -2nd to b/l basilar pneumonia -patient & his expressed concerns for exposure to ticks as well as potential mouse droppings as he was at their cabin recently doing some work on the site -lyme negative -anaplasmosis smear negative -check anaplasmosis DNA test to be complete (anaplasmosis rarely can cause pneumonia) -send rickettsial panel in am (typhus rarely can cause pneumonia) #hyponatremia - -2nd to dehydration/volume contraction -cont isotonic fluids -repeat BMP am #troponin elevation - -suspect this is due to myocardial demand ischemia in the setting of sepsis/pneumonia -no evidence of ACS -troponin peak already seen #syncope - -likely due to severe dehydration/volume contraction in the setting of his illness -had prodromal symptoms -will check echo to be complete -suspect echo will be normal; he leads an active lifestyle, exercises w/o limitations, etc. #first degree AV block - -no Rx needed -will be on telemetry to ensure no higher types of block -echo DVT proph - -if he stays beyond tomorrow would add heparin or lovenox SC pt's updated throughout the admission process Admission HPI Per Admitting Provider 50yo male with no past medical history who presents with ~3 weeks of cough, fevers, and other infectious symptoms. Patient states he traveled to [place] in mid-July for work-related activity. Then, in early August, he developed a dry cough with 4-5 days of high fevers, sometimes reaching 104 degrees. Around this time one of his sons had a 24-hour febrile illness. Mr Clarke's fevers resolved, but his dry cough continued. Over the next two weeks his cough simply would not resolve. However, he was able to maintain normal activities, work, etc. He mentions he took an [id number]-[id number] cough suppressant (Delsym) last week but did not like the way it made him feel and thus stopped it after 3 days of use. Then, on Saturday of last week, he developed significant fatigue and weakness, poor appetite, and worsening cough. Thru the weekend he felt warm but did not check his temperature until Saturday pm; at that point he confirmed that indeed he was having recurrent fevers. On Saturday he went to a local urgent care. A chest x-ray was performed and he was prescribed Tessalon perles. He continued to worsen. On Saturday and today he had dyspnea with minimal activity. Today he finally came to the ER for evaluation. In addition to the above he had an episode of diarrhea last night. While attempting to get up from the toilet he was very weak, felt dizzy, and passed out. He woke up on the floor; his came to his aid following this event. During my admission assessment his was present at bedside who supplemented the history. She mentioned that Mr Clarke was doing work on their cabin recently and she was concerned about exposure to mouse droppings. She also expressed concern about tick-borne illness. Discharge Exam GENERAL APPEARANCE NAD, activity normal for age, well developed/ well nourished, no cyanosis, pallor, or diaphoresis. EYES lids/conjunctiva normal. EARS/NOSE/THROAT Mucous membranes moist, nares normal, lips/teeth normal uvula midline without oral pharyngeal erythema, exudate or swelling TMs normal bilaterally. No lymphangitis/lymphedema. HEAD/NECK normocephalic atraumatic, no facial trauma, neck is supple. RESPIRATORY respiratory effort normal, speaks in full sentences, no tripod position, no accessory muscle use. Lungs clear to auscultation without rhonchi, wheezes, rales CARDIAC Regular rate and rhythm, no edema. ABDOMINAL Soft, ND/NT. No evidence of fluid wave. No pulsatile masses on exam, rebound tenderness, Clemons sign or pain over Mcburney's point. MUSCLES/EXTREMITIES No abnormal range of motion, no swelling. SKIN Warm, pink and dry. No rashes, dermatoses, petechiae or lesions. NEUROLOGICAL Speech is clear and appropriate. Normal level of consciousness. Gait and coordination are normal. 5/5 strength in all extremities. PSYCH Normal mood and affect. Judgement/competence is appropriate Discharge Plan Discharge Items Patient Disposition: Home - Self-Care Reason For Visit: B/L PNEUMONIA Discharge Diagnosis: PNA Condition on Discharge: Serious Activity: Resume your previous activity Non-emergency contact: Primary Care Provider Call non-emergency contact if: you have any medication questions Follow-up/Referrals: Kristian Moise CRNP [Primary Care Provider] - Diet: Regular Addtl Attending Provider Instructions: Follow up with PMD in 2 weeks Pending Studies at Discharge: No Stand-Alone Forms: My [facility] [employer] Smoking Cessation Medications and DC Order Prescriptions: New cefuroxime axetil 500 mg tablet 500 mg PO BID 5 Days Qty: 10 0RF azithromycin [Zithromax] 500 mg tablet 500 mg PO DAILY 5 Days Qty: 5 0RF Continued benzonatate 200 mg capsule 200 mg PO TID PRN (Reason: cough) Qty: 30 0RF Discharge Orders: Discharge Order (Routine); Ordered 09/15/25 Ordered By: Fili Simon Admission Data Admit Date/Time: 09/14/25 18:52 Attending Provider: Fili Simon Admit Provider: Guerrero Andrews Primary Care Provider: Kristian Moise Other Providers: Guerrero Andrews Hospital Stay Data Consultations 09/14/25 17:40 ED Decision to Admit Stat Diagnostic Imagining Performed 09/14/25 15:59 CT angio chest PE protocol Stat Pending Results Patient Have Any Pending Studies at Discharge: No Discharge Instructions Given to Patient (Per Discharging Provider) Follow up with PMD in 2 weeks Total Time Total Time Spent Total Time Spent (In Minutes): 50 Coding Level of Care Code 46399 INP/OBS DISCH >30 MIN Diagnoses Pneumonia J18.9 Acute hypoxic respiratory failure J96.01 Sepsis A41.9 Acute hyponatremia E87.1 Acute dehydration E86.0 Elevated troponin R79.89 First degree AV block I44.0 Syncope R55
[2025-09-15 10:03] VITALS: BP 107/72
--- NOTE | 2025-09-15 13:49 | XCELERA ---
[id number]
[2025-09-15] MEDS ORDERED: AZITHROMYCIN 500 MG/255 ML BAG IV SCH (16:00)
--- NOTE | 2025-09-15 18:46 | Electrocardiogram Report ---
Test Reason : Blood Pressure : */* mmHG Vent. Rate : 89 BPM Atrial Rate : 89 BPM P-R Int : 212 ms QRS Dur : 98 ms QT Int : 362 ms P-R-T Axes : 45 48 27 degrees QTcB Int : 440 ms Sinus rhythm with 1st degree A-V block Otherwise normal ECG When compared with ECG of 14-Sep-2025 10:56, No significant change was found Confirmed by Edgar Lord ([id number]) on 09/15/2025 6:46:25 PM Referred By: REFERRED SELF Confirmed By: Edgar Lord
== END 2025-09-15 10:48 | disposition home or self-care (01) | DRG 871 ==
LOC: SUATTDRO → ED 10:10 → 2N 18:52 → SUATTDRO 18:52 → 2N 21:05